=== PATIENT | male | born 1955 | race Caucasian/White ===

== ENCOUNTER 2018-03-01 15:29 | Outpatient (RCR) | payer SELFPAY ==
--- NOTE | 2018-03-01 16:02 | [facility]H.PTOPEV ---
PT Outpatient Evaluation Rehab PT Outpatient Evaluation Start: 03/01/18 15:53 Freq: Status: Active Protocol: Document 03/01/18 15:54 PHORCHACHO (Rec: 03/01/18 16:02 PHORNE [id number]) Electronically Signed By Edenilson Vargas, PT 03/01/18 15:54 Outpatient Therapy Subjective History Subjective History Pt is 62 yowm who presents from the ED in a wheelchair, without shoes with hx of multiple falls over the past 2 -3 days. He reports no c/o pain, dizziness, weakness, numbness, or tingling. He reports no recollection of what caused any of his falls, but states maybe a little lightheadedness. He reports no significant PMH and has noone with him to offer any other hx at this time. He does report he uses [employer], just for reading. Prior Functional Limitations None Current Functional Limitations Walking Level of pain today (0-10) 0 Balance Eval Hx of Falls Hx Falls Yes Number in last 6 months 3 Gait/Posture Asssessment General Gait Observation Wide Based Gait Shuffling Step Level of Transfer Assist Independent Hip Observation in Gait Swing No Deviation Hip Observation in Gait Stance No Deviation Ankle/Foot Observation in Gait Swing Decreased Foot Clearance Body Alignment Posture Rigid Nystagmus Nystagmus Presence None Timed Up and Go Test 1. Is the Timed Up and Go test result > yes or = to 12 seconds? Oculomotor Gaze Oculomotor Gaze Nml: Vergence Smooth Pursuit [place] Feet Together/Eyes open/Stable Surface pass Feet Together/Eyes Closed/Stable Surface pass Outpatient Therapy Assessment Impairments Problems/Impairmments Impaired Walking Prognosis Rehab Potential Good Clinical Impression Consistent with generalized unsteady gait Outpatient Therapy Plan of Care Treatment Plan May Include Eval/Re-Eval Yes Frequency Times per week 0 Duration Number of Weeks 0 Addendums This patient is a candidate for social No or vocational rehab? Patient/Guardian verbally acknowledges No understanding of treatment program and consents to further treatment? Patient/Guardian verbally acknowledges No understanding of diagnosis, prognosis and goals for treatment? G -code Required
== END 2018-03-01 15:30 | disposition home or self-care (01) ==
LOC: PT 15:29
PROVIDERS: PCP Emergency Medicine; Visit Provider Emergency Medicine
DX: R26.81 Unsteadiness on feet (principal); Z91.81 History of falling
CPT/HCPCS: 97163